=== PATIENT | female | born 1945 | race Caucasian/White ===

== ENCOUNTER 2017-08-11 15:13 | Emergency (ER) | payer MEDICARE ==
[2017-08-11 15:19] VITALS: BP 104/82
[2017-08-11 15:58] LABS: BASOPHIL % 0.6 % (0.0-0.4); Basophil (Absolute #) 0.02 (0-0.4); Eosinophil % 0.9 % (0.00-5.0); Eosinophil (Absolute #) 0.03 (0-0.5); Granulocyte Absolute (ANC) 2.18 (1.4-6.9); Granulocytes % 64.9 % (36.0-66.0); Hematocrit 36.6 % (35-47); Hemoglobin 12.2 gm/dl (12.0-16.0); Lymphocyte (Absolute #) 0.78 (1.0-4.6); Lymphocytes % 23.2 % (24.0-44.0); Mean Cell Volume 96.6 fl (78-100); Mean Corpuscular Hemoglobin 32.1 pg (26-32); Mean Corpuscular Hgb Concent. 33.3 g/dl (32-36); Mean Platelet Volume 9.2 fl (6-9.5); Monocyte (Absolute #) 0.35 (0.0-1.3); Monocytes % 10.4 % (0.0-12.0); Platelet Count 217 K/mm3 (150-450); Red Blood Count 3.79 M/mm3 (4.1-5.4); Red Cell Distribution Width 13.1 % (11.5-14.0); White Blood Count 3.4 K/mm3 (4.0-10.5)
[2017-08-11 16:21] LABS: BLOOD UREA NITROGEN 13 mg/dL (7-17); CHLORIDE 99 mmol/L (98-107); Calcium 8.9 mg/dL (8.4-10.2); Carbon Dioxide 25 mmol/L (22-30); Creatinine 1 0.46 mg/dL (0.52-1.04); Glucose 107 mg/dL (74-106); Potassium 4.2 mmol/L (3.5-5.1); SODIUM 133 mmol/L (137-145)
[2017-08-11 18:04] VITALS: PULSE 70
[2017-08-11 18:09] VITALS: O2SAT 99
--- NOTE | 2017-08-11 18:09 | ERPHSYRPT ---
- History of Present Illness Time Seen by Provider: 08/11/17 15:34 Source: patient, family () Patient Subjective Stated Complaint: pt states she has fish bone stuck in throat , Triage Nursing Assessment: pt waked in, resp easy, skin w/d/p, pt keeps clearing throat, and spitting Physician History: CC: choked on fishbone HX: 72 y/o eating frozen klein fish and felt fishbones in her throat. She spit some out. Thinks she swallowed some bone and felt lke it was stuck in her upper throat. No diff breathing. No vomiting. No abd pain. No wheezing. No vomiting. She was scared she would choke so came to ER. Severity: moderate Allergies/Adverse Reactions: morphine Allergy (Mild, Verified 08/11/17 15:20) Home Medications: Dicyclomine HCl [Bentyl] 10 mg PO ACHS 08/22/14 [History] Esomeprazole Magnesium [Nexium] 40 mg PO DAILY 08/22/14 [History] Sertraline HCl 100 mg [Zoloft 100 MG] 100 mg PO DAILY 08/22/14 [History] Sumatriptan Succinate [Imitrex] 100 mg PO .PRN 08/22/14 [History] Temazepam 30 mg PO HS PRN PRN 08/22/14 [History] Hydrocodone Bit/Acetaminophen [Ballinger 5-325 Tablet] 1 each PO PRN 11/23/14 [ History] Hx Tetanus, Diphtheria Vaccination/Date Given: Yes (2011) Hx Influenza Vaccination/Date Given: Yes Hx Pneumococcal Vaccination/Date Given: Yes Immunizations Up to Date: Yes - Review of Systems Constitutional: No Symptoms Ears, Nose, & Throat: Throat Pain (FB sensation) Respiratory: No Dyspnea Abdominal/Gastrointestinal: No Abdominal Pain, No Nausea, No Vomiting Skin: No Rash Neurological: No Headache All Other Systems: Reviewed and Negative - Past Medical History Pertinent Past Medical History: Yes Neurological History: No Pertinent History ENT History: No Pertinent History Cardiac History: No Pertinent History Respiratory History: Bronchitis Endocrine Medical History: No Pertinent History Musculoskeletal History: Osteoarthritis GI Medical History: Diverticulitis, Ulcer, Irritable Bowel, GERD History: No Pertinent History Psycho-Social History: Depression, Anxiety Female Reproductive Disorders: No Pertinent History Other Medical History: IRRITABLE BOWEL SYNDROME, GERD, TRIGGER FINGER RELEASE R HAND - Past Surgical History Past Surgical History: Yes Musculoskeletal: Orthopedic Surgery Female Surgical History: Hysterectomy Other Surgical History: SHOULDER SURGERY, BACK SURGERY, left knee - Social History Smoking Status: Former smoker Exposure to second hand smoke: No Drug Use: none Patient Lives Alone: No - Female History Hx Last Menstrual Period: post Hx Now: No - Nursing Vital Signs Nursing Vital Signs: Initial Vital Signs Temperature 97.6 F 08/11/17 15:14 Pulse Rate 75 08/11/17 15:14 Respiratory Rate 20 08/11/17 15:14 Blood Pressure 104/82 08/11/17 15:14 O2 Sat by Pulse Oximetry 99 08/11/17 15:14 Pain Scale Pain Intensity 4 - Physical Exam General Appearance: alert, other (pleasant lady) Eye Exam: PERRL/EOMI Ears, Nose, Throat Exam: moist mucous membranes Neck Exam: normal inspection, non-tender, supple Respiratory Exam: normal breath sounds, lungs clear, No wheezing Cardiovascular Exam: regular rate/rhythm Gastrointestinal/Abdomen Exam: soft, No tenderness, No distention Extremity Exam: normal inspection, normal range of motion Neurologic Exam: alert, oriented x 3, cooperative, flight steward II-XII nml as tested, sensation nml, No motor deficits Skin Exam: warm, dry, No rash SpO2 Interpretation: normal SpO2: 99 Oxygen Delivery: Room Air - Course Nursing assessment & vital signs reviewed: Yes - CT Exams soft tissue neck CT Interpretation: Tele-radiologist Report (no FB) Ordered Tests: Active Orders 24 hr Category Date Time Status IV Insertion STAT Care 08/11/17 15:41 Active NPO (ED) STAT Care 08/11/17 15:41 Active NECK WO CONTRAST [CT] Stat Exams 08/11/17 15:41 Taken BMP Stat Lab 08/11/17 15:50 Completed CBC W DIFF Stat Lab 08/11/17 15:50 Completed Lab/Rad Data: Laboratory Result Diagrams 08/11/17 15:50 08/11/17 15:50 Laboratory Results 08/11/17 08/11/17 Range/Units 15:50 15:50 WBC 3.4 L (4.0-10.5) K/mm3 RBC 3.79 L (4.1-5.4) M/mm3 Hgb 12.2 (12.0-16.0) gm/dl Hct 36.6 (35-47) % MCV 96.6 (78-100) fl MCH 32.1 H (26-32) pg MCHC 33.3 (32-36) g/dl RDW 13.1 (11.5-14.0) % Plt Count 217 (150-450) K/mm3 MPV 9.2 (6-9.5) fl Gran % 64.9 (36.0-66.0) % Lymphocytes % 23.2 L (24.0-44.0) % Monocytes % 10.4 (0.0-12.0) % Eosinophils % 0.9 (0.00-5.0) % Basophils % 0.6 (0.0-0.4) % Basophils # 0.02 (0-0.4) Sodium 133 L (137-145) mmol/L Potassium 4.2 (3.5-5.1) mmol/L Chloride 99 (98-107) mmol/L Carbon Dioxide 25 (22-30) mmol/L Anion Gap 13.0 (5-15) MEQ/L BUN 13 (7-17) mg/dL Creatinine 0.46 L (0.52-1.04) mg/dL Estimated GFR > 60 ML/MIN Glucose 107 H (74-106) mg/dL Calcium 8.9 (8.4-10.2) mg/dL - Progress Progress Note: 08/11/17 18:09 She has no respiratory symptoms. She swallowed water. Discussed local and direct visualization. She decided it feels scratched now and she is ready to go home. Will release with instr. Counseled pt/family regarding: lab results, diagnosis, need for follow-up, rad results - Departure Time of Disposition: 18:09 Departure Disposition: Home Clinical Impression: Foreign body sensation in throat Condition: Stable Critical Care Time: No Referrals: FREDDIE GABRIEL [Primary Care Provider] - Instructions: Choking Additional Instructions: Liquid diet tonite. Cool liquids. Return for pain, trouble breathing or swallowing or concerns. Follow up with LOU Gabriel.
--- NOTE | 2017-08-11 21:10 | XRAY ---
Indication: Patient states swallowed a fishbone and now stuck. Multiple contiguous axial images obtained through the neck without contrast as ordered. Comparison: None Supra-and infraglottic airway are widely patent without radiopaque foreign body. Normal epiglottis. No pneumomediastinum. Mild scattered carotid calcifications bilaterally. Thyroid gland unremarkable. Underlying cervical spine intact with minimal C4-C6 degenerative disc disease. Images through the base of the brain and lung apices unremarkable. Impression: 1. Negative radiopaque foreign body. 2. Minimal C4-C6 degenerative disc disease and mild bilateral carotid calcifications.. Comment: Preliminary interpretation was made by [facility]. No discrepancy. CTDI 15.68
== END 2017-08-11 18:19 | disposition home or self-care (01) ==
LOC: ED 15:13
DX: R09.89 Other specified symptoms and signs involving the circulatory and respiratory systems (principal)
CPT/HCPCS: 36000; 36415; 70490; 80048; 85025; 99284

== ENCOUNTER 2018-10-07 08:22 | Day surgery (SDC) | payer MEDICARE ==
[~2018-10-07 08:22] MED LIST: Lactated Ringers 1,000 ML IV ONE; Lactated Ringers 1,000 ML IV SCH
[2018-10-07] MEDS ORDERED: DIPRIVAN 200 MG/20 ML IV ONE (08:23)
[2018-10-07] MEDS ORDERED: Lactated Ringers 1,000 ML IV ONE (12:25)
[2018-10-07 14:49] VITALS: BP 138/52; PULSE 54; O2SAT 95
--- NOTE | 2018-10-08 12:04 | OP ---
PROCEDURE DATE/TIME: 10/07/2018 1211 PREOPERATIVE DIAGNOSES: 1) Gastroesophageal reflux disease. 2) Left upper quadrant abdominal pain, mid abdominal pain. 3) High-risk colon polyp. POSTOPERATIVE DIAGNOSES: 1) Gastroesophageal reflux disease. 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 3) Hiatal hernia. 4) Peptic ulcer disease. 5) Gastritis. 6) Duodenal diverticulum. 7) Cecal polyp. 8) Pancolonic diverticulosis. 9) Minimal hemorrhoidal disease. PROCEDURES: 1) EGD with biopsy. 2) Colonoscopy with hot forceps polypectomy. PROCEDURE PERFORMED BY: Amanda Bañuelos M.D. ANESTHESIA: MAC. ESTIMATED BLOOD LOSS: Minimal. COMPLICATIONS: None. SPECIMENS: 1) Antral ulcer 2) Distal esophagus ulcer, 3) Cecal polyp. HISTORY: This is a patient who presents for close follow up due to a recent high-risk polyp removal as well as mid abdominal pain and left upper quadrant abdominal pain. Risks, benefits, alternatives to EGD and colonoscopy were discussed with the patient preoperatively. She understands, agrees and wants to proceed. Her H&P and consent were reviewed with her and confirmed. DESCRIPTION OF PROCEDURE: She was then placed in the left lateral decubitus position. A complete time out performed. The scope gently introduced into the mouth, oropharynx down to the esophagus, stomach and duodenum. Duodenal diverticulum noted otherwise the duodenum was normal. In the stomach there were multiple ulcers. There was one old ulcer that appeared to be healing and scarring down. There were also two active antral ulcers. There were also multiple specks of small amount of clotted old blood in her stomach. I did not see a visible vessel at any of the ulcer bases and none of the ulcers had clot on them and none of the ulcers were actively bleeding at this time. The small amount of blood was old. She also had gastritis throughout her stomach but most of the inflammation was situated in the region of the antrum. On retroflex view, we visualized a hiatal hernia. The scope was then unretroflexed. We took antral biopsies and sent these off for Helicobacter pylori testing. These sites were hemostatic. The scope was carefully withdrawn to the distal esophagus. Gastroesophageal junction was off by 3 cm. She did have a 3 cm sliding hiatal hernia and she also had possible Moore-like changes with two sites anteriorly and posteriorly of approximately 1 cm of Moore-like changes at both sites. We took biopsies of these and sent these to pathology. All the sites were hemostatic. The scope was then completely removed. The remainder of the esophagus mucosa looked normal. The patient was then repositioned for colonoscopy. On rectal exam she had a very minimal amount of hemorrhoid disease. The scope was then inserted and gently advanced to the level of the cecum. The colon is quite tortuous. We are able to gently navigate the scope to the cecum with gentle abdominal pressure. Ileocecal valve and appendiceal were confirmed and these were normal. There was a small benign appearing cecal polyp taken with hot forceps in its entirety and sent to pathology this site looked hemostatic. The scope was then further withdrawn. The patient had pancolonic diverticulosis. Her prior tattoo site looked okay. There were no signs of any regrowth anywhere near the tattoo site and then the scope was able to be completely withdrawn. The patient tolerated the procedure very well. There were no immediate complications. Plan will be for proton pump inhibitor and Carafate therapy due to the peptic ulcer disease, gastritis, hiatal hernia and esophagitis as well as EGD in three months. We will also do a colonoscopy in approximately three years.
== END 2018-10-07 14:20 | disposition home or self-care (01) ==
LOC: SDC 08:22
PROVIDERS: ATTEND Surgery
DX: K21.9 Gastro-esophageal reflux disease without esophagitis (principal); D12.0 Benign neoplasm of cecum; K44.9 Diaphragmatic hernia without obstruction or gangrene; K29.70 Gastritis, unspecified, without bleeding; K57.10 Diverticulosis of small intestine without perforation or abscess without bleeding; K57.30 Diverticulosis of large intestine without perforation or abscess without bleeding; K25.9 Gastric ulcer, unspecified as acute or chronic, without hemorrhage or perforation; K22.10 Ulcer of esophagus without bleeding; K64.9 Unspecified hemorrhoids
CPT/HCPCS: 88305; 99100; J2704

== ENCOUNTER 2019-01-06 07:42 | Day surgery (SDC) | payer MEDICARE ==
[2019-01-06] MEDS ORDERED: Lactated Ringers 1,000 ML IV ONE (08:26)
[2019-01-06] MEDS ORDERED: Lactated Ringers 1,000 ML IV SCH (08:30)
[2019-01-06] MEDS ORDERED: Sodium Chloride 0.9% 1000 ML 1,000 ML ONE (10:12)
[2019-01-06] MEDS ORDERED: DIPRIVAN 200 MG/20 ML IV ONE (10:12)
[2019-01-06] MEDS ORDERED: Ketamine HCl 50 MG/ML ONE (10:12)
[2019-01-06 11:21] VITALS: O2SAT 98
[2019-01-06 11:31] VITALS: BP 152/64; PULSE 58
--- NOTE | 2019-01-07 09:06 | OP ---
PROCEDURE DATE/TIME: 01/06/2019 1008 PREOPERATIVE DIAGNOSIS: Peptic ulcer disease. POSTOPERATIVE DIAGNOSES: 1) Resolved peptic ulcer disease. 2) Residual gastritis. 3) Small hiatal hernia. 4) Reflux disease. PROCEDURE: EGD with biopsies. PROCEDURE PERFORMED BY: Amanda Bañuelos M.D. ESTIMATED BLOOD LOSS: Minimal. ANESTHESIA: MAC. COMPLICATIONS: None. SPECIMEN: Antral biopsy to rule out Helicobacter pylori disease. HISTORY: This is a 73 year-old female who presents due to reflux disease as well as peptic ulcer disease for follow up EGD. Risks, benefits, alternatives had been discussed with her preoperatively. Her H&P and consent reviewed with her and confirmed. DESCRIPTION OF PROCEDURE: She was brought back to the endoscopy suite, laid in the left lateral decubitus position. A complete time out was performed. The scope gently introduced into the mouth, oropharynx into the esophagus, stomach, duodenum. In the duodenum she has an unchanged large duodenal diverticulum in approximately the second portion of her duodenum. The scope was then carefully withdrawn. The remainder of the duodenum looked okay. In her stomach she had some mild residual gastritis. The ulcers have healed. On retroflex view she does have a small hiatal hernia. No other findings. The scope was then completely removed into the esophagus. She does have some early reflux changes here. Overall her stomach and esophagus have significantly improved. We were able to completely remove the scope. The patient tolerated the procedure very well. I did take an antral biopsy to insure no Helicobacter pylori disease and she does have some residual gastritis. This result we will discuss at her next appointment. Otherwise she will need a PRN EGD. I am going to have her decrease her Carafate and then ultimately eliminate this after approximately a month. I have discussed all the results with her family in the postoperative area.
== END 2019-01-06 11:40 | disposition home or self-care (01) ==
LOC: SDC 07:42
PROVIDERS: ATTEND Surgery
DX: K29.70 Gastritis, unspecified, without bleeding (principal); K44.9 Diaphragmatic hernia without obstruction or gangrene; K21.9 Gastro-esophageal reflux disease without esophagitis
CPT/HCPCS: 99100; J2704

== ENCOUNTER 2020-08-02 11:21 | Day surgery (SDC) | payer MEDICARE ==
[~2020-08-02 11:21] MED LIST changes: +CEFAZOLIN 2 GM-D5W BAG** 2 GM/50 ML ML IV ONE; +CEFAZOLIN 2 GM-D5W BAG** 2 GM/50 ML ML IV SCH; +KEFZOL 1 GM ONE; +Sensorcaine 0.25% 10 ML ONE
[2020-08-02] MEDS ORDERED: Decadron 4 MG INJ ONE (13:13)
[2020-08-02] MEDS ORDERED: Zofran 4 MG/2 ML VIAL ONE (13:13)
[2020-08-02] MEDS ORDERED: BRIDION 200MG/2ML IV ONE (13:13)
[2020-08-02] MEDS ORDERED: DIPRIVAN 200 MG/20 ML IV ONE (13:13)
[2020-08-02] MEDS ORDERED: Xylocaine-Mpf 2% 5 Ml Vial ONE (13:13)
[2020-08-02] MEDS ORDERED: Zemuron 100 MG/10 ML ONE (13:13)
[2020-08-02] MEDS ORDERED: TORAdol 30 mg Injection ONE (13:13)
[2020-08-02] MEDS ORDERED: SUBLIMAZE 100 MCG/2 ML ONE (13:14)
[2020-08-02] MEDS ORDERED: Marcaine 0.5%/Epinephrine 10 ML ONE (15:27)
[2020-08-02] MEDS ORDERED: Hydromorphone 1 mg/ml Injection ONE (16:09)
[2020-08-02] MEDS ORDERED: Lactated Ringers 1,000 ML IV ONE (16:34)
[2020-08-02 17:37] VITALS: O2SAT 100
[2020-08-02 17:40] VITALS: BP 138/79; PULSE 75
--- NOTE | 2020-08-09 12:02 | OP ---
PROCEDURE DATE/TIME: 08/02/2020 9954 PREOPERATIVE DIAGNOSIS: Right inguinal hernia. POSTOPERATIVE DIAGNOSES: 1) Right inguinal indirect and direct defect. 2) Mildly enlarged right inguinal lymph node. PROCEDURES: 1) Right inguinal hernia repair with mesh. 2) Excisional biopsy deep right inguinal lymph node. PROCEDURE PERFORMED BY: Amanda Bañuelos M.D. COMPLICATIONS: None. ESTIMATED BLOOD LOSS: Less than 10 cc. ANESTHESIA: General. SPECIMEN: Right inguinal lymph node and hernia sac. PROCEDURE DETAILS: This is a 75 year-old patient who presents with symptomatic right inguinal hernia and also verified on imaging as well as on exam. Risks, benefits, alternatives regarding repair have been discussed with her in detail preoperatively. She understands and agrees and wants to proceed. She was seen in the preoperative area. Her H&P and consent reviewed with her and confirmed. She was also marked personally by myself. The correct side which is the right side with her awake, alert and hernia verified. DESCRIPTION OF PROCEDURE: She was then brought back to the operative suite. Anesthesia induced. Prepped and draped in the usual sterile fashion. Complete time out performed. A curvilinear incision following skin line was made approximately two finger breadths above the pubic tubercle carrying this incision laterally through skin, subcutaneous tissue through Oskar and then we clearly identified the external oblique. The inguinal ring was identified. She has an obvious hernia. The external oblique opened along its fibers down to the external ring. The hernia was clearly identified. We elevated the external oblique carefully and then we were able to identify the round ligament and ligate this. She had an indirect as well as a direct defect. The floor was very weak. We continued our dissection and she had a moderate sized hernia sac. She also had a weak floor in the region of the femoral area but no specific femoral hernia. There was a very tiny ilioinguinal nerve that was quite adherent here to the chronic hernia and I did take pictures and excise this carefully because we will need to place mesh here and then at this point we then carefully dissected free the hernia sac. The hernia sac was opened. The omental contents were carefully replaced back into the abdomen. I excised the excess part of the sac and then sutured this closed. We then further replaced the contents into the abdomen. I selected a piece of mesh. I selected a 2 x 4 cm Bard mesh. I cut this to fit the patient's anatomy in an oval fashion. I then sutured this down to the pubic tubercle continuing this along Jony's to transitioning this up to the shelving edge of the inguinal ligament and continued laterally. I then carried a new suture medially down to the pubic tubercle and then up and around onto the conjoin tendon securing the patient's inguinal region and covering both the inguinal indirect and direct defects. Once this was done we insured hemostasis. We irrigated. We then closed the external oblique to re-approximate it with 2-0 Vicryl. Oskar with 3-0 Vicryl and then running 4-0 subcuticular Monocryl stitch. The patient tolerated the procedure very well. There were no immediate complications. She is going to be following up with me as an outpatient. Of note, there was a slightly enlarged obvious lymph node in the deep right inguinal region. Due to this I did completely excise the node and sent this to pathology. I did not take any extra tissue just the node.
== END 2020-08-02 17:43 | disposition home or self-care (01) ==
LOC: SDC 11:21
PROVIDERS: ATTEND Surgery
DX: K40.90 Unilateral inguinal hernia, without obstruction or gangrene, not specified as recurrent (principal); R59.0 Localized enlarged lymph nodes
CPT/HCPCS: 36415; 38500; 49505; C1781; 88302; 88305; 99100; J0690; J1100; J1170; J1885; J2405; J2704; J3010

== ENCOUNTER 2021-04-09 19:28 | Emergency (ER) | payer MEDICARE ==
--- NOTE | 2021-04-09 19:58 | ERPHSYRPT ---
- History of Present Illness Time Seen by Provider: 04/09/21 19:52 Source: patient Exam Limitations: no limitations Patient Subjective Stated Complaint: "I fell in my kitchen and hit my chin." Triage Nursing Assessment: The patient reported a mechanical fall in her kitchen. She reported striking her left knee and chin. She is not anticoagulated and denied any loss of consciousness. She was able to recall the events in full. The patient has a 2cm laceration to the underside of the chin. No active bleeding at this time. Left knee with contusion. Full ROM and equal strength. Physician History: "I fell in my kitchen and hit my chin." just prior to arrival to ER. The patient reported a mechanical fall in her kitchen. She reported striking her left knee and chin. She is not anticoagulated and denied any loss of con sciousness. She was able to recall the events in full. The patient has a 2cm laceration to the underside of the chin. No active bleeding at this time. Left knee with contusion. Full ROM and equal strength. Timing/Duration: today Severity: mild Associated Symptoms: denies symptoms Allergies/Adverse Reactions: pollen extracts Allergy (Intermediate, Verified 04/09/21 19:34) Shortness of Breath butorphanol [From Stadol] Adverse Reaction (Severe, Verified 04/09/21 19:34) hallucinations ibuprofen Adverse Reaction (Intermediate, Verified 04/09/21 19:34) Stomach Pain morphine Adverse Reaction (Mild, Verified 04/09/21 19:34) hallucinate Opioids - Morphine Analogues Adverse Reaction (Mild, Verified 04/09/21 19:34) constipation and nausea and vomiting Home Medications: Sertraline HCl 100 mg [Zoloft 100 MG] 100 mg PO DAILY 08/22/14 [History] Cyclobenzaprine HCl [Flexeril] 10 mg PO Q6HPRN PRN 09/26/18 [History] Loratadine [Claritin] 10 mg PO DAILY PRN PRN 09/26/18 [History] Multivit-Min/FA/Lycopen/Lutein [Centrum Silver Tablet] 1 each PO DAILY 09/26/18 [History] Temazepam [Restoril] 30 mg PO HS 09/26/18 [History] Torsemide 20 mg [Demadex 20 mg] 10 mg PO DAILY PRN PRN 09/26/18 [History] Magnesium Hydroxide 30 ml [Milk of Magnesia 30 ml] 1 capful PO DAILY PRN 10/07/18 [History] Psyllium Husk [Metamucil] 660 gm PO BID 10/07/18 [History] Calcium Carb/Vitamin D 500 mg* [Calcium 500MG W/Vit D Tablet] 1 tab PO DAILY 07/26/20 [History] PANTOPRAZOLE 40 mg Tablet [Protonix 40MG Tablet] 10 mg PO QAM 07/26/20 [History] Vitamin E 100 units PO DAILY 07/26/20 [History] Bisacodyl 5 mg [Dulcolax 5 mg] 5 mg PO DAILY PRN PRN 08/02/20 [History] Calcium Carbonate/Vitamin D3 [Calcium 600 + Vit D Tablet] 1 each PO DAILY 08/02/20 [History] Cholecalciferol (Vitamin D3) [Vitamin D] 5,000 unit PO DAILY 08/02/20 [History] Cyclobenzaprine HCl [Flexeril] 10 mg PO HS PRN 08/02/20 [History] Hx Tetanus, Diphtheria Vaccination/Date Given: Yes (2011) Hx Influenza Vaccination/Date Given: Yes Hx Pneumococcal Vaccination/Date Given: Yes Travel Risk - International Travel Have you traveled outside of the country in past 3 weeks: No - Coronavirus Screening Are you exhibiting any of the following symptoms?: No Close contact with a COVID-19 positive Pt in past 14-21 Days: No - Vaccine Status Have you recieved a Covid-19 vaccination: Yes Documentation Liaison: [employer] - Vaccination Dates Date of 2cond Vaccination (if applicable): unknown - Review of Systems Constitutional: No Symptoms Eyes: No Symptoms Ears, Nose, & Throat: No Symptoms Respiratory: No Symptoms Cardiac: No Symptoms Abdominal/Gastrointestinal: No Symptoms Genitourinary Symptoms: No Symptoms Musculoskeletal: No Symptoms Skin: Other (laceration 4 cms under chin) Neurological: No Symptoms - Past Medical History Pertinent Past Medical History: Yes Neurological History: No Pertinent History ENT History: No Pertinent History Cardiac History: No Pertinent History Respiratory History: No Pertinent History Endocrine Medical History: No Pertinent History Musculoskeletal History: Arthritis GI Medical History: Diverticulitis, Ulcer, Irritable Bowel, GERD History: No Pertinent History Psycho-Social History: Depression, Anxiety Female Reproductive Disorders: No Pertinent History Other Medical History: SOB due to dust. 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 cuff shredded ,repaired) BACK SURGERY (L3,L4 and buldging repair) left knee (replaced) oral surgery post for dentures, jasson cataract removed and lens placed - Social History Smoking Status: Former smoker Exposure to second hand smoke: No Drug Use: none Patient Lives Alone: No - Female History Hx Now: No - Nursing Vital Signs Nursing Vital Signs: Initial Vital Signs Temperature 98.2 F 04/09/21 19:28 Pulse Rate 72 04/09/21 19:28 Respiratory Rate 16 04/09/21 19:28 Blood Pressure 149/66 04/09/21 19:28 O2 Sat by Pulse Oximetry 99 04/09/21 19:28 Pain Scale Pain Intensity 4 - Physical Exam General Appearance: no apparent distress Eye Exam: PERRL/EOMI Ears, Nose, Throat Exam: normal ENT inspection Neck Exam: normal inspection Respiratory Exam: normal breath sounds Cardiovascular Exam: regular rate/rhythm Gastrointestinal/Abdomen Exam: soft Pelvic Exam: not done Rectal Exam: deferred Back Exam: normal inspection Extremity Exam: normal inspection Neurologic Exam: alert, oriented x 3, cooperative Skin Exam: laceration (4 cms, superficial under chin) SpO2: 99 Procedures - Laceration/Wound Repair Other Time of Procedure: 19:40 Wound Location: face (under chin) Wound Length (cm): 4 Wound's Depth, Shape: superficial Wound Explored: clean Irrigated: Yes Hibiclens Prep: Yes Anesthesia: local, 1% Lidocaine Volume Anesthetic (ccs): 5 Wound Debrided: minimal Wound Repaired With: sutures Suture Size/Type: 3-0, ethilon Number of Sutures: 5 Layer Closure?: No Sterile Dressing Applied?: Yes - Course Nursing assessment & vital signs reviewed: Yes - Progress Progress: improved Counseled pt/family regarding: diagnosis, need for follow-up (sutures removal in 10 days) - Departure Departure Disposition: Home Clinical Impression: Laceration of chin without complication Qualifiers: Encounter type: initial encounter Qualified Code(s): S01.81XA - Laceration without foreign body of other part of head, initial encounter Condition: Stable Critical Care Time: No Referrals: FREDDIE BAUMANN GENERATOR WORKER [Primary Care Provider] - Follow up/PCP as directed (sutures removal in 10 days) Instructions: Laceration Repair With Stitches (DC) Additional Instructions: LACERATION CARE 1. Do not use peroxide, merthiolate, alcohol, or betadine. 2. Keep wound clean and dry. 3. Change dressing if it becomes wet or soiled. 4. If you must work, wear protective covering. 5. You may return to the emergency department or see your family physician for suture removal. 6. See your family physician or return to the emergency department for any of the following signs or symptoms: A. Redness B. Swelling C. Discolored drainage D. Red streaks E. Elevated temperature F. Other signs of infection KATIUSKA STROUD was seen on 04/09/21 n the Emergency Room. At that time you were treated for an emergent condition, during your visit Laboratory, Radiology and/or other procedures may have been ordered. It is very important that you follow-up with your Primary Care Physician FREDDIE BAUMANN within the next 24-48 hours to review your Emergency Room visit and the final results of testing that was ordered. Some test results such as Urine Cultures, Blood Cultures, and other cultures if ordered will not be finalized for 24-48 hours. If you do not have a Primary Care Provider please call the medical records department at [phone] to obtain a copy of your results or you may sign into our patient portal to obtain these results by visiting us @ [email or web address] and completing the following steps: 1. Click on the Patient Portal link 2. Click the Patient Self Enrollment Link to complete the enrollment form and entering your 3. Once the enrollment form is completed you will receive an email with a temporary ID and password at the email address you provided. 4. Next choose a user name and password. Your user name must be at least 4 characters long and your password must be at least 4 characters long. 5. Choose a security question from the list and provide your answer to the question. If you already have signed into the Health Portal you may access your Health Care Information 18/12 by the following steps: 1. Login to our website @ [email or web address] 2. Enter your original user name and password. FAQS The [facility] Health Portal is an online tool that contains your Lab Results, Radiology Reports, Visit History, Discharge Instructions and Health Summary Lab and Radiology Results will not be available for 72 hours on the portal. The Portal is a secure site, passwords are encryted and URLs are re-written so they cannot be copied and pasted. You and authorized family members are the only ones who can access your Portal. Also there is a timeout feature that protects your information if you leave the Portal page open. If you have technical difficulty please use the Contact Us link on the page this will allow you to submit any questions you have regarding the Portal or you may contact the Medical Record Department at [phone]. Discharge/Care Plan KATIUSKA STROUD was seen on 04/09/21 in the Emergency Room. The patient was counseled regarding Diagnosis,Lab results, Imaging studies, need for follow up and when to return to the Emergency Room. Prescriptions given: Discharge Note I have spoken with the patient and/or caregivers. I have explained the patient's condition, diagnosis and treatment plan based on the information available to me at this time. I have answered the patient's and/or caregiver's questions and addressed any concerns. The patient and/or caregivers have as good understanding of the patient's diagnosis, condition and treatment plan as can be expected at this point. The vital signs have been stable. The patient's condition is stable and appropriate for discharge from the emergency department. The patient will pursue further outpatient evaluation with the primary care physician or other designated or consulting physician as outlined in the discharge instructions. The patient and/or caregivers are agreeable to this plan of care and follow-up instructions have been explained in detail. The patient and/or caregivers have received these instruction. The patient/and or caregivers are aware that any significant change in condition or worsening of symptoms should prompt an immediate return to this or the closest emergency department or call 911.
== END 2021-04-09 20:10 | disposition home or self-care (01) ==
LOC: ED 19:28
DX: S01.81XA Laceration without foreign body of other part of head, initial encounter (principal); W18.30XA Fall on same level, unspecified, initial encounter; Y92.000 Kitchen of unspecified non-institutional (private) residence as the place of occurrence of the external cause; M25.562 Pain in left knee; Z79.899 Other long term (current) drug therapy
CPT/HCPCS: 12013; 99283

== ENCOUNTER 2021-04-28 07:40 | Inpatient (IN) | payer MEDICARE ==
[2021-04-28] MEDS ORDERED: Lactated Ringers 1,000 ML IV SCH (08:30)
[2021-04-28] MEDS ORDERED: ENTEREG 12 MG PO SCH (08:30)
[2021-04-28] MEDS ORDERED: MEFOXIN 2 GM PREMIX** 2 GM/50 ML ML IV SCH (09:00)
[2021-04-28 09:57] LABS: ABO TYPING O; Antibody Screen NEGATIVE (NEGATIVE); RH TYPING POSITIVE
[2021-04-28] MEDS ORDERED: Versed 2 MG/2 ML Injection IV ONE (11:10)
[2021-04-28] MEDS ORDERED: Zofran 4 MG/2 ML VIAL ONE ×2 (11:46→17:15)
[2021-04-28] MEDS ORDERED: BRIDION 200MG/2ML IV ONE (11:46)
[2021-04-28] MEDS ORDERED: DIPRIVAN 200 MG/20 ML IV ONE (11:46)
[2021-04-28] MEDS ORDERED: Decadron 4 MG INJ ONE (11:46)
[2021-04-28] MEDS ORDERED: Zemuron 100 MG/10 ML ONE ×3 (11:46→12:14)
[2021-04-28] MEDS ORDERED: EPIDURAL - ROPIVICAINE0.5%/SUFENTA 250 MCG/NS EPIDURAL PRN (13:00)
[2021-04-28] MEDS ORDERED: Versed 2 MG/2 ML Injection ONE (13:18)
[2021-04-28] MEDS ORDERED: SUBLIMAZE 100 MCG/2 ML ONE (13:33)
[2021-04-28] MEDS ORDERED: Lactated Ringers 2,000 ML IV ONE (14:29)
[2021-04-28] MEDS ORDERED: Marcaine 0.5%/Epinephrine 10 ML ONE (14:46)
[2021-04-28] MEDS ORDERED: Naropin 0.5% 30 ML VIAL ONE (15:35)
[2021-04-28] MEDS ORDERED: EPINEPHRINE 1MG/ML AMP ONE (15:35)
[2021-04-28] MEDS ORDERED: GlucaGen 1 MG ONE (15:37)
[2021-04-28] MEDS ORDERED: Lactated Ringers 1,000 ML IV ONE (16:40)
[2021-04-28] MEDS ORDERED: CHLORASEPTIC SPRAY 180 ML ONE (17:11)
[2021-04-28] MEDS ORDERED: DEMEROL 50 MG ONE (17:19)
[2021-04-28 19:27] LABS: Appearance CLEAR (CLEAR); Bilirubin NEGATIVE (NEGATIVE); Blood SMALL Ery/ul (0-5); Glucose NEGATIVE (NEGATIVE); Ketones SMALL (NEGATIVE); Leukocyte Esterase NEGATIVE (NEGATIVE); Mucus SLIGHT /HPF (NEGATIVE); Nitrite NEGATIVE (NEGATIVE); Protein,Urine Dip NEGATIVE (Negative); Specific Gravity 1.011 (1.005-1.025); Urobilinogen NEGATIVE mg/dL (0-1)
[2021-04-28] MEDS ORDERED: Cyclobenzaprine 10 MG PO PRN (21:16)
[2021-04-28] MEDS ORDERED: TYLENOL 325 MG PO PRN (21:24)
[2021-04-28] MEDS ORDERED: FEVERALL 650 MG PR PRN (21:24)
[2021-04-28] MEDS ORDERED: Zofran 4 MG/2 ML VIAL IVIM PRN (21:25)
[2021-04-28] MEDS ORDERED: CHLORASEPTIC SPRAY 180 ML PO PRN (21:26)
[2021-04-28] MEDS ORDERED: Ativan 2 MG/1 ML VIAL IV PRN (21:28)
[2021-04-28] MEDS ORDERED: NARCAN 2 MG/2 ML IV PRN (21:30)
[2021-04-28] MEDS ORDERED: Nubain 10 MG/ML IV PRN (21:31)
[2021-04-28] MEDS: Restoril 15 MG PO SCH (21:51)
[2021-04-28] MEDS: PROTONIX 40 MG IV IV SCH (22:20)
[2021-04-29] MEDS: MEFOXIN 2 GM PREMIX** 2 GM/50 ML ML IV SCH ×4 (00:10→18:34)
[2021-04-29] MEDS: Lactated Ringers 1,000 ML IV SCH ×3 (00:13→17:01)
[2021-04-29 05:42] LABS: Hematocrit 33.7 % (35-47); Mean Cell Volume 99.1 fl (78-100); Mean Corpuscular Hemoglobin 32.4 pg (26-32); Mean Corpuscular Hgb Concent. 32.6 g/dl (32-36); Mean Platelet Volume 9.6 fl (7.5-11.0); Platelet Count 230 K/mm3 (150-450); Red Cell Distribution Width 13.9 % (11.5-14.0); White Blood Count 8.6 K/mm3 (4.0-10.5)
[2021-04-29 06:02] LABS: ANION GAP 14.1 MEQ/L (5-15); BLOOD UREA NITROGEN 9 mg/dL (7-17); CHLORIDE 103 mmol/L (98-107); Calcium 8.3 mg/dL (8.4-10.2); Carbon Dioxide 21 mmol/L (22-30); Creatinine 1 0.59 mg/dL (0.52-1.04); EST GLOMERULAR FILTRATION RATE > 60.0 ML/MIN; Glucose 74 mg/dL (74-106); Potassium 3.2 mmol/L (3.5-5.1); SODIUM 135 mmol/L (137-145)
[2021-04-29] MEDS ORDERED: NON-FORMULARY ITEM (Cetirizine Hcl [Zyrtec] 10 MG Tablet) PO PRN (07:21)
[2021-04-29] MEDS ORDERED: CLARITIN 10 MG PO PRN (07:25)
--- NOTE | 2021-04-29 08:31 | PCM.NOTE ---
Date and Time: 04/29/21 0827 Subjective Assessment: patient is post-op day 1 from ex lap with cholecystectomy and partial colectomy. her pain is well controllled with epidural, she only complains of sore throat. NG is in place, overall she is doing well Objective Exam General Appearance: no apparent distress Neurologic Exam: alert, oriented x 3 Wound Assessment: Skin/Wound Assessment Wound/Incision Assessment Start: 04/28/21 17:48 Text: Status: Active Freq: Q4H Protocol: Document 04/29/21 04:00 WI (Rec: 04/29/21 04:08 WI [id number]) Wound/Incision Assessment right Groin Wound Assessment Shift Assessment Wound Type Incision Wound Stage Non Pressure Wound Dressing Status Dry & Intact Drainage Amount None Drainage Odor None/Absent Primary Dressing boarder gauze dressing Comment NO DIFFICULTIES NOTED midline anterior ABD Wound Assessment Shift Assessment Wound Type Incision Wound Stage Non Pressure Wound Dressing Status Dry & Intact Drainage Amount None Drainage Odor None/Absent Primary Dressing boarder gauze dressing Comment no difficulties noted, ABD binder also in place Respiratory Exam: normal breath sounds, lungs clear, No respiratory distress Cardiovascular Exam: regular rate/rhythm, normal heart sounds Gastrointestinal/Abdomen Exam: soft, other (dressing clean, dry, intact), No normal bowel sounds, No distention Extremity Exam: normal inspection, normal range of motion OBJECTIVE DATA Vital Signs: Vital Signs - 24 hr Temp Pulse Resp BP Pulse Ox 04/29/21 03:56 98.9 F 77 20 100/49 98 04/29/21 00:00 99.8 F 79 18 116/55 97 04/28/21 20:15 99.3 F 73 18 124/56 97 04/28/21 19:15 97.3 F 70 19 120/59 97 04/28/21 18:45 98.6 F 73 18 109/54 96 04/28/21 18:42 96 04/28/21 18:20 97.1 F 70 19 107/53 96 04/28/21 18:15 96.9 F 71 20 107/54 96 04/28/21 18:00 97.1 F 70 19 107/53 96 04/28/21 09:21 98.4 F 63 16 131/74 98 04/28/21 08:52 98.4 F 63 16 131/74 98 Pain Assessment - Last Documented Pain Intensity 4 Intake and Output: Intake & Output 04/26/21 04/27/21 04/28/21 04/29/21 11:59 11:59 11:59 11:59 Intake Total 988 Output Total 900 Balance 88 Weight 65.317 kg 61.5 kg 69.7 kg Lab Results: Lab Results-Last 24 Hours 04/28/21 04/28/21 04/29/21 Range/Units 08:57 14:13 05:34 WBC 8.6 (4.0-10.5) K/mm3 RBC 3.40 L (4.1-5.4) M/mm3 Hgb 11.0 L (12.0-16.0) gm/dl Hct 33.7 L (35-47) % MCV 99.1 (78-100) fl MCH 32.4 H (26-32) pg MCHC 32.6 (32-36) g/dl RDW 13.9 (11.5-14.0) % Plt Count 230 (150-450) K/mm3 MPV 9.6 (7.5-11.0) fl Sodium (137-145) mmol/L Potassium (3.5-5.1) mmol/L Chloride (98-107) mmol/L Carbon Dioxide (22-30) mmol/L Anion Gap (5-15) MEQ/L BUN (7-17) mg/dL Creatinine (0.52-1.04) mg/dL Estimated GFR ML/MIN Glucose (74-106) mg/dL Calcium (8.4-10.2) mg/dL Urine Color YELLOW (YELLOW) Urine Appearance CLEAR (CLEAR) Urine pH 5.0 (5-6) Ur Specific [place] 1.011 (1.005-1.025) Urine Protein NEGATIVE (Negative) Urine Ketones SMALL (NEGATIVE) Urine Blood SMALL (0-5) [place]ron/ul Urine Nitrite NEGATIVE (NEGATIVE) Urine Bilirubin NEGATIVE (NEGATIVE) Urine Urobilinogen NEGATIVE (0-1) mg/dL Ur Leukocyte Esterase NEGATIVE (NEGATIVE) Urine WBC (Auto) 3-5 (0-5) /HPF Urine RBC (Auto) NONE (0-2) /HPF Urine Mucus (Auto) SLIGHT (NEGATIVE) /HPF Urine Glucose NEGATIVE (NEGATIVE) mg/dL ABO Group O Rh Factor POSITIVE Antibody Screen NEGATIVE (NEGATIVE) 04/29/21 Range/Units 05:34 WBC (4.0-10.5) K/mm3 RBC (4.1-5.4) M/mm3 Hgb (12.0-16.0) gm/dl Hct (35-47) % MCV (78-100) fl MCH (26-32) pg MCHC (32-36) g/dl RDW (11.5-14.0) % Plt Count (150-450) K/mm3 MPV (7.5-11.0) fl Sodium 135 L (137-145) mmol/L Potassium 3.2 L (3.5-5.1) mmol/L Chloride 103 (98-107) mmol/L Carbon Dioxide 21 L (22-30) mmol/L Anion Gap 14.1 (5-15) MEQ/L BUN 9 (7-17) mg/dL Creatinine 0.59 (0.52-1.04) mg/dL Estimated GFR > 60.0 ML/MIN Glucose 74 (74-106) mg/dL Calcium 8.3 L (8.4-10.2) mg/dL Urine Color (YELLOW) Urine Appearance (CLEAR) Urine pH (5-6) Ur Specific [place] (1.005-1.025) Urine Protein (Negative) Urine Ketones (NEGATIVE) Urine Blood (0-5) Bayron/ul Urine Nitrite (NEGATIVE) Urine Bilirubin (NEGATIVE) Urine Urobilinogen (0-1) mg/dL Ur Leukocyte Esterase (NEGATIVE) Urine WBC (Auto) (0-5) /HPF Urine RBC (Auto) (0-2) /HPF Urine Mucus (Auto) (NEGATIVE) /HPF Urine Glucose (NEGATIVE) mg/dL ABO Group Rh Factor Antibody Screen (NEGATIVE) Assessment/Plan (1) S/P partial colectomy Current Visit: Yes Status: Acute Assessment & Plan: vitals and labs are good, NG managed per surgery. patient has minimal medical history and h/h are good post-op. no changes Code(s): Z90.49 - ACQUIRED ABSENCE OF OTHER SPECIFIED PARTS OF DIGESTIVE TRACT (2) Status post cholecystectomy Current Visit: Yes Status: Acute Code(s): Z90.49 - ACQUIRED ABSENCE OF OTHER SPECIFIED PARTS OF DIGESTIVE TRACT
--- NOTE | 2021-04-29 09:32 | OP ---
PROCEDURE DATE/TIME: 04/28/2021 1337 PREOPERATIVE DIAGNOSES: 1) Chronic constipation with significantly redundant colon causing significant symptoms and change in bowel function. 2) Chronic cholecystitis with cholelithiasis. 3) Right groin hernia. POSTOPERATIVE DIAGNOSES: 1) Chronic constipation with significantly redundant colon causing significant symptoms and change in bowel function. 2) Chronic cholecystitis with cholelithiasis. 3) Right groin hernia had been identified as a right reducible femoral hernia. PROCEDURES: 1) Open partial sigmoid colectomy. 2) Open partial transverse colon colectomy. 3) Open cholecystectomy. 4) Open appendectomy. 5) Open right femoral hernia repair through a right groin incision. PROCEDURE PERFORMED BY: Amanda Bañuelos M.D. BU[employer]ING [employer]ER SURGEON: Urban Bañuelos M.D. COMPLICATIONS: None. ESTIMATED BLOOD LOSS: Less than 20 cc. ANESTHESIA: General and epidural. SPECIMEN: 1) Partial sigmoid. 2) Partial transverse colon. 3) Gallbladder. 4) Appendix. HISTORY: This is a 75-year-old female who is well known to me who has had multiple issues regarding her colon with extensive constipation. She has had a full work up including multiple scopes as well as an enema and she does have a significantly redundant colon in the transverse and sigmoid colon. Despite significant attempts to medically manage this with a bowel regimen, lifestyle changes, the patient continues to have abdominal pain, cramping, bloating and severe constipation to the point that she has some extreme inability to go to the restroom and this is causing significant issues for her and she would like for us to explore her and remove the colon that we deem necessary in order to attempt to improve her bowel habits based on her redundant anatomy. She also has chronic cholecystitis or cholelithiasis and she also has a right groin hernia and on palpation it feels like it is likely a femoral hernia although she could have a recurrent inguinal hernia and we will possibly repair this at the time of surgery based on what we find. The patient understands all the risks, benefits and alternatives regarding surgery. These have been discussed with her on multiple occasions and she would like to proceed. She was seen today in the preoperative area. Her H&P, consent reviewed with her and confirmed. All questions answered. A plan with anesthesia was made with the patient as well. She has chosen to also have an epidural which I think will help her postoperatively regarding pain control and we will proceed as planned. DESCRIPTION OF PROCEDURE: She was then brought back to the operative suite. Anesthesia induced. Prepped and draped in the usual sterile fashion. A complete time out performed. A midline laparotomy was made in the central and slightly superior abdomen through skin, subcutaneous tissue. The fascia was opened. The peritoneum was opened. We took great care to protect the bowel. I then started my exploration. The surface of her liver appeared grossly normal without any significant major defects from what we could visualize. The stomach anterior surface appeared normal, felt normal from what we could visualize the NG is in good position and it was secure. Her transverse colon is obviously extremely redundant. You can literally take this redundancy and pull it up out of her abdomen. It looks like it easily twists. It is extremely floppy and it looks like there is about 20 cm at least of redundancy here. The colon also does have some spasm here. The ascending colon did not appear obviously abnormal. We cannot see the entire surface due to the attachments. I do see a tattoo dye, nothing significant jumping out from our gross exam. Her appendix was slightly long. Her cecum is slightly sloppy. However, she does not have any known cecal bascules and this does not appear to be twisted here. With regards to her sigmoid colon, her sigmoid colon again is also extremely redundant like her transverse colon. I can just pull it up and straight out of her abdomen quite far but is extremely redundant and is extremely floppy. It looks like it would just twist around on itself and kink and this has at least 20 cm of redundancy as well. We then explored the remainder of her abdomen and did not find any significant concerning findings outside of a femoral hernia this appears to be inferior to her inguinal mesh and really not involving this. It appears to be a separate femoral defect. At this time we decided to repair the femoral hernia and take out the gallbladder prior to addressing the colon so we made a small separate incision at her upper right groin taking this through skin into the fatty tissue and then clearly identifying the femoral hernia defect from both sides. The femoral hernia sac itself was open. The ring was clearly defined. The fascia was then tacked down placing three Prolene sutures all in place. Once these were in place, we then tied each of these down. We avoided the femoral vein. The femoral artery is further lateral. Our repair looked excellent. We palpated from internally. The ring is completely closed. There are no issues here. We then closed with buried 3-0 Vicryl and then running 4-0 subcuticular Monocryl stitch and a sterile dressing. The gallbladder was removed also prior to the colectomy. The gallbladder was grasped, retracted. We carefully obtained a critical view this was done by taking down the subtle adhesions this did appear to have chronic cholecystitis on gross exam. The cystic duct and cystic artery were very clearly identified with our dissection. We continued to clear posterior to the gallbladder. There was a small posterior artery branch. There were no other structures entering the gallbladder. The structures were directly entering the gallbladder. The cystic duct was clearly visible these were clipped with the laparoscopic 10 mm clip, ligated and then gallbladder is taken off the liver bed with Bovie cautery and sent to pathology. There is no bile spillage. There is no bile leaking. Everything is very hemostatic and looked excellent. We completed this and then we turned our attention to her colon. The patient has two obvious redundancies including the transverse colon and the sigmoid colon as described above. We gently elevated the sigmoid colon. This looked like it would lay nicely with a [id number] anastomosis and so we identified our points of resection. We took the mesentery with the LigaSure. We took the colon with the green WILLIAM stapler and we fashioned this planned anastomosis first insuring there were no twists and this colon in its new configuration would lie nicely. We protected our abdominal space. We made two colotomies, one proximal and one at the distal end. We placed 75 WILLIAM stapler, fired this to create our connections and then we removed the excess colon with another 75 WILLIAM staple load and then this excess was sent to pathology. We closed the mesenteric defect with a 3-0 PDS suture with a nicely patent anastomosis. Prior to our final staple we did check for hemostasis which was excellent and the patency which looked excellent and then post final stapler we re-inspected and this appeared to be patent laying nice and looked good. This was then laid back in its normal anatomical position which it lays nicely. The transverse colon was then assessed this looked like it would lay nicely in the same fashion and so we did the exact same maneuver to create a [id number] anastomosis with green WILLIAM stapler 75 and using the LigaSure on mesentery defect again closed in the same fashion with a running 3-0 PDS suture. This again excellent hemostasis, excellent patency, lies very nice and natural. We did have to take the omentum adhesions down in order to resect this otherwise the anastomosis was created exactly the same as the sigmoid. Once this was completed, we then re-inspected all of our surgical sites. Everything looked excellent. The patient does have a slightly elongated appendix. I thought it would be dominguez to resect this clinically given her significant history of right-sided pain, her irregular colon until we then made a window, took the appendiceal blood supply with the LigaSure and then stapled the appendix with a blue load WILLIAM stapler. Staple line looked excellent. We stapled down onto the cecum. The appendix was sent to pathology. No other findings. We then irrigated, did a final check. Closed the fascia with 0 PDS looped suture, used 3-0 Vicryl to bury the fascial stitches and then dulce in skin and a sterile dressing. The patient tolerated the procedure very well. There were no immediate complications. She is going to be admitted for further care. I have discussed with her the results postoperatively. She is doing well. I also discussed with her friend who she wanted me to talk to afterwards her surgical findings as well as her instructions and she will be admitted to the surgical floor.
[2021-04-29] MEDS ORDERED: NON-FORMULARY ITEM (Sertraline Hcl 100 Mg [Zoloft 100 Mg] 100 MG Tab) PO SCH (10:00)
[2021-04-29] MEDS: ZOLOFT 50 MG TABLET PO SCH (10:31)
[2021-04-29] MEDS: D5W/0.45NS W/ 20mEq KCl 1000 ML 1,000 ML IV SCH (20:51)
[2021-04-29] MEDS: PROTONIX 40 MG IV IV SCH (21:02)
[2021-04-29] MEDS: Restoril 15 MG PO SCH (23:35)
[2021-04-30 06:30] LABS: Hematocrit 33.2 % (35-47); Hemoglobin 10.6 gm/dl (12.0-16.0); Mean Cell Volume 99.4 fl (78-100); Mean Corpuscular Hemoglobin 31.7 pg (26-32); Mean Corpuscular Hgb Concent. 31.9 g/dl (32-36); Mean Platelet Volume 9.5 fl (7.5-11.0); Platelet Count 214 K/mm3 (150-450); Red Blood Count 3.34 M/mm3 (4.1-5.4); Red Cell Distribution Width 14.2 % (11.5-14.0); White Blood Count 7.4 K/mm3 (4.0-10.5)
[2021-04-30 06:48] LABS: ANION GAP 10.1 MEQ/L (5-15); BLOOD UREA NITROGEN 8 mg/dL (7-17); CHLORIDE 104 mmol/L (98-107); Calcium 8.3 mg/dL (8.4-10.2); Carbon Dioxide 25 mmol/L (22-30); EST GLOMERULAR FILTRATION RATE > 60.0 ML/MIN; Glucose 104 mg/dL (74-106); Potassium 3.9 mmol/L (3.5-5.1); SODIUM 135 mmol/L (137-145)
[2021-04-30] MEDS: D5W/0.45NS W/ 20mEq KCl 1000 ML 1,000 ML IV SCH (08:03)
[2021-04-30] MEDS: ZOLOFT 50 MG TABLET PO SCH (09:52)
--- NOTE | 2021-04-30 10:45 | PCM.NOTE ---
Date and Time: 04/30/21 1044 Subjective Assessment: doing better - Review of Systems Constitutional: No Fever, No Chills Eyes: No Symptoms Ears, Nose, & Throat: No Symptoms Respiratory: No Cough, No Short Of Breath Cardiac: No Chest Pain, No Edema, No Syncope Abdominal/Gastrointestinal: No Abdominal Pain, No Nausea, No Vomiting, No Diarrhea Genitourinary Symptoms: No Dysuria Musculoskeletal: No Back Pain, No Neck Pain Skin: No Rash Neurological: No Dizziness, No Focal Weakness, No Sensory Changes Psychological: No Symptoms Endocrine: No Symptoms Hematologic/Lymphatic: No Symptoms Immunological/Allergic: No Symptoms Objective Exam General Appearance: no apparent distress, alert Neurologic Exam: alert, oriented x 3, cooperative, normal mood/affect, nml cerebellar function, sensation nml, No motor deficits Skin Exam: normal color, warm, dry Wound Assessment: Skin/Wound Assessment Wound/Incision Assessment Start: 04/28/21 17:48 Text: Status: Active Freq: Q4H Protocol: Document 04/30/21 08:00 RDNE (Rec: 04/30/21 10:18 [email or web address] [id number]) Wound/Incision Assessment Medial Back Wound Assessment Shift Assessment Wound Type epidural site Wound Stage Non Pressure Wound Dressing Status Dry & Intact Drainage Odor None/Absent right Groin Wound Assessment Shift Assessment Wound Type Incision Wound Stage Non Pressure Wound Dressing Status Dry & Intact Drainage Amount None Drainage Odor None/Absent Primary Dressing boarder gauze dressing Comment scant shadowing noted;area marked midline anterior ABD Wound Assessment Shift Assessment Wound Type Incision Wound Stage Non Pressure Wound Dressing Status Dry & Intact Drainage Amount None Drainage Odor None/Absent Primary Dressing boarder gauze dressing Comment no difficulties noted, ABD binder also in place Wound Photo Photo Taken No Eye Exam: PERRL, EOMI, eyes nml inspection Ears, Nose, Throat Exam: normal ENT inspection, pharynx normal, moist mucous membranes Neck Exam: normal inspection, non-tender, supple, full range of motion Respiratory Exam: normal breath sounds, lungs clear, No respiratory distress Cardiovascular Exam: regular rate/rhythm, normal heart sounds Gastrointestinal/Abdomen Exam: soft, No tenderness, No mass Extremity Exam: normal inspection, normal range of motion Back Exam: normal inspection, normal range of motion, No CVA tenderness, No vertebral tenderness Pelvic Exam: deferred Rectal Exam: deferred OBJECTIVE DATA Vital Signs: Vital Signs - 24 hr Temp Pulse Resp BP Pulse Ox 04/30/21 08:00 97.3 F 71 18 133/62 96 04/30/21 06:57 97 04/30/21 06:00 17 04/30/21 04:00 97.7 F 73 17 123/60 96 04/30/21 00:17 97.7 F 76 18 130/63 95 04/30/21 00:00 18 04/29/21 21:22 77 04/29/21 19:46 101.4 F 84 18 135/68 97 04/29/21 18:55 96 04/29/21 18:00 24 04/29/21 16:00 98.4 F 74 24 121/59 96 04/29/21 12:00 99.5 F 80 19 119/56 95 Pain Assessment - Last Documented Pain Intensity 0 Pain Scale Used 0-10 Pain Scale Intake and Output: Intake & Output 04/27/21 04/28/21 04/29/21 04/30/21 11:59 11:59 11:59 11:59 Intake Total 988 2754 Output Total 900 1125 Balance 88 1629 Weight 61.5 kg 69.7 kg Lab Results: Lab Results-Last 24 Hours 04/30/21 04/30/21 Range/Units 05:30 05:30 WBC 7.4 (4.0-10.5) K/mm3 RBC 3.34 L (4.1-5.4) M/mm3 Hgb 10.6 L (12.0-16.0) gm/dl Hct 33.2 L (35-47) % MCV 99.4 (78-100) fl MCH 31.7 (26-32) pg MCHC 31.9 L (32-36) g/dl RDW 14.2 H (11.5-14.0) % Plt Count 214 (150-450) K/mm3 MPV 9.5 (7.5-11.0) fl Sodium 135 L (137-145) mmol/L Potassium 3.9 D (3.5-5.1) mmol/L Chloride 104 (98-107) mmol/L Carbon Dioxide 25 (22-30) mmol/L Anion Gap 10.1 (5-15) MEQ/L BUN 8 (7-17) mg/dL Creatinine 0.40 L (0.52-1.04) mg/dL Estimated GFR > 60.0 ML/MIN Glucose 104 (74-106) mg/dL Calcium 8.3 L (8.4-10.2) mg/dL Assessment/Plan (1) S/P partial colectomy Current Visit: Yes Status: Acute Code(s): Z90.49 - ACQUIRED ABSENCE OF OTHER SPECIFIED PARTS OF DIGESTIVE TRACT (2) Abdominal pain Current Visit: Yes Status: Acute Qualifiers: Abdominal location: generalized Qualified Code(s): R10.84 - Generalized abdominal pain Code(s): R10.9 - UNSPECIFIED ABDOMINAL PAIN
[2021-04-30] MEDS ORDERED: clonazePAM PO SCH (20:00)
[2021-04-30] MEDS: Restoril 15 MG PO SCH (22:15)
[2021-04-30] MEDS: Protonix 40MG Tablet PO SCH (22:15)
[2021-05-01 06:47] LABS: Hematocrit 31.2 % (35-47); Hemoglobin 9.8 gm/dl (12.0-16.0); Mean Corpuscular Hemoglobin 31.7 pg (26-32); Mean Corpuscular Hgb Concent. 31.4 g/dl (32-36); Mean Platelet Volume 9.7 fl (7.5-11.0); Platelet Count 209 K/mm3 (150-450); Red Blood Count 3.09 M/mm3 (4.1-5.4); Red Cell Distribution Width 14.1 % (11.5-14.0); White Blood Count 5.8 K/mm3 (4.0-10.5)
[2021-05-01 07:12] LABS: ANION GAP 7.6 MEQ/L (5-15); BLOOD UREA NITROGEN 6 mg/dL (7-17); CHLORIDE 103 mmol/L (98-107); Calcium 8.2 mg/dL (8.4-10.2); Carbon Dioxide 29 mmol/L (22-30); Creatinine 1 0.35 mg/dL (0.52-1.04); EST GLOMERULAR FILTRATION RATE > 60.0 ML/MIN; Glucose 80 mg/dL (74-106); Potassium 3.6 mmol/L (3.5-5.1); SODIUM 135 mmol/L (137-145)
--- NOTE | 2021-05-01 08:04 | PCM.NOTE ---
Date and Time: 05/01/21802 Subjective Assessment: doing better - Review of Systems Constitutional: No Fever, No Chills Eyes: No Symptoms Ears, Nose, & Throat: No Symptoms Respiratory: No Cough, No Short Of Breath Cardiac: No Chest Pain, No Edema, No Syncope Abdominal/Gastrointestinal: No Abdominal Pain, No Nausea, No Vomiting, No Diarrhea Genitourinary Symptoms: No Dysuria Musculoskeletal: No Back Pain, No Neck Pain Skin: No Rash Neurological: No Dizziness, No Focal Weakness, No Sensory Changes Psychological: No Symptoms Endocrine: No Symptoms Hematologic/Lymphatic: No Symptoms Immunological/Allergic: No Symptoms Objective Exam General Appearance: no apparent distress, alert Neurologic Exam: alert, oriented x 3, cooperative, normal mood/affect, nml cerebellar function, sensation nml, No motor deficits Skin Exam: normal color, warm, dry Wound Assessment: Skin/Wound Assessment Wound/Incision Assessment Start: 04/28/21 17:48 Text: Status: Active Freq: Q4H Protocol: Document 05/01/21 04:00 AW (Rec: 05/01/21 04:57 AW [id number]) Wound/Incision Assessment Medial Back Wound Assessment Shift Assessment Wound Type epidural site Wound Stage Non Pressure Wound Dressing Status Dry & Intact Drainage Odor None/Absent right Groin Wound Assessment Shift Assessment Wound Type Incision Wound Stage Non Pressure Wound Dressing Status Dry & Intact Drainage Amount None Drainage Odor None/Absent Primary Dressing boarder gauze dressing Comment scant shadowing noted;area marked midline anterior ABD Wound Assessment Shift Assessment Wound Type Incision Wound Stage Non Pressure Wound Dressing Status Dry & Intact Drainage Amount None Drainage Odor None/Absent Primary Dressing boarder gauze dressing Comment no difficulties noted, ABD binder also in place Wound Photo Photo Taken No Eye Exam: PERRL, EOMI, eyes nml inspection Ears, Nose, Throat Exam: normal ENT inspection, pharynx normal, moist mucous membranes Neck Exam: normal inspection, non-tender, supple, full range of motion Respiratory Exam: normal breath sounds, lungs clear, No respiratory distress Cardiovascular Exam: regular rate/rhythm, normal heart sounds Gastrointestinal/Abdomen Exam: soft, No tenderness, No mass Extremity Exam: normal inspection, normal range of motion Back Exam: normal inspection, normal range of motion, No CVA tenderness, No marilu tebral tenderness Pelvic Exam: deferred Rectal Exam: deferred OBJECTIVE DATA Vital Signs: Vital Signs - 24 hr Temp Pulse Resp BP Pulse Ox 12/05/21 06:00 18 05/01/21 04:00 97.5 F 62 18 116/59 99 05/01/21 00:00 16 04/30/21 23:45 98.2 F 74 16 109/58 96 04/30/21 19:59 100.4 F 81 18 122/65 97 04/30/21 19:20 97 04/30/21 16:00 98.0 F 74 18 134/60 100 04/30/21 12:00 98.7 F 72 18 145/66 97 Pain Assessment - Last Documented Pain Intensity 0 Pain Scale Used 0-10 Pain Scale Intake and Output: Intake & Output 04/28/21 04/29/21 04/30/21 05/01/21 11:59 11:59 11:59 11:59 Intake Total 988 2754 915 Output Total 900 1125 500 Balance 88 1629 415 Weight 61.5 kg 69.7 kg Lab Results: Lab Results-Last 24 Hours 05/01/21 05/01/21 Range/Units 05:25 05:25 WBC 5.8 (4.0-10.5) K/mm3 RBC 3.09 L (4.1-5.4) M/mm3 Hgb 9.8 L (12.0-16.0) gm/dl Hct 31.2 L (35-47) % MCV 101.0 H (78-100) fl MCH 31.7 (26-32) pg MCHC 31.4 L (32-36) g/dl RDW 14.1 H (11.5-14.0) % Plt Count 209 (150-450) K/mm3 MPV 9.7 (7.5-11.0) fl Sodium 135 L (137-145) mmol/L Potassium 3.6 (3.5-5.1) mmol/L Chloride 103 (98-107) mmol/L Carbon Dioxide 29 (22-30) mmol/L Anion Gap 7.6 (5-15) MEQ/L BUN 6 L (7-17) mg/dL Creatinine 0.35 L (0.52-1.04) mg/dL Estimated GFR > 60.0 ML/MIN Glucose 80 (74-106) mg/dL Calcium 8.2 L (8.4-10.2) mg/dL Assessment/Plan (1) S/P partial colectomy Current Visit: Yes Status: Acute Code(s): Z90.49 - ACQUIRED ABSENCE OF OTHER SPECIFIED PARTS OF DIGESTIVE TRACT (2) Abdominal pain Current Visit: Yes Status: Acute Qualifiers: Abdominal location: generalized Qualified Code(s): R10.84 - Generalized abdominal pain Code(s): R10.9 - UNSPECIFIED ABDOMINAL PAIN
[2021-05-01] MEDS: Protonix 40MG Tablet PO SCH (10:26)
[2021-05-01] MEDS: ZOLOFT 50 MG TABLET PO SCH (10:26)
[2021-05-01] MEDS: NORCO 5/325 MG PO PRN ×2 (12:58→21:50)
[2021-05-01] MEDS: MAALOX ES 30 ML UNIT DOSE PO PRN ×2 (12:58→21:00)
[2021-05-01] MEDS ORDERED: DEMADEX 20 MG PO PRN (18:47)
[2021-05-01] MEDS: clonazePAM PO PRN (20:57)
[2021-05-01] MEDS: Restoril 15 MG PO SCH (20:57)
[2021-05-02 05:52] LABS: Hematocrit 33.3 % (35-47); Hemoglobin 10.8 gm/dl (12.0-16.0); Mean Cell Volume 98.5 fl (78-100); Mean Corpuscular Hgb Concent. 32.4 g/dl (32-36); Mean Platelet Volume 9.6 fl (7.5-11.0); Platelet Count 213 K/mm3 (150-450); Red Blood Count 3.38 M/mm3 (4.1-5.4); Red Cell Distribution Width 13.6 % (11.5-14.0); White Blood Count 4.5 K/mm3 (4.0-10.5)
[2021-05-02 06:16] LABS: ANION GAP 12.8 MEQ/L (5-15); BLOOD UREA NITROGEN 4 mg/dL (7-17); CHLORIDE 95 mmol/L (98-107); Calcium 8.2 mg/dL (8.4-10.2); Carbon Dioxide 30 mmol/L (22-30); Creatinine 1 0.31 mg/dL (0.52-1.04); EST GLOMERULAR FILTRATION RATE > 60.0 ML/MIN; Glucose 75 mg/dL (74-106); SODIUM 135 mmol/L (137-145)
[2021-05-02 06:22] LABS: Potassium 2.9 mmol/L (3.5-5.1)
[2021-05-02] MEDS ORDERED: DEMADEX 20 MG PO PRN (06:53)
[2021-05-02] MEDS ORDERED: Klor Con 10 MEQ PO ONE ×2 (08:00→17:00)
[2021-05-02] MEDS: NORCO 5/325 MG PO PRN ×2 (08:06→18:37)
[2021-05-02] MEDS: Protonix 40MG Tablet PO SCH (08:09)
[2021-05-02] MEDS: ZOLOFT 50 MG TABLET PO SCH (08:10)
[2021-05-02] MEDS: MAALOX ES 30 ML UNIT DOSE PO PRN (18:37)
[2021-05-02] MEDS: Restoril 15 MG PO SCH (21:34)
[2021-05-02] MEDS: clonazePAM PO PRN (21:34)
[2021-05-02] MEDS ORDERED: ENOXAPARIN SODIUM SQ SCH (22:00)
[2021-05-02] MEDS ORDERED: Heparin 5000 UNITS/0.5 ML (HIGH RISK MED) SQ SCH (22:00)
[2021-05-03 05:17] VITALS: PULSE 68
[2021-05-03 06:28] LABS: Absolute Neutrophil Ct (ANC) 2.63 (1.4-6.9); Basophil (Absolute #) 0.04 (0-0.4); Eosinophil % 4.8 % (0.00-5.0); Hematocrit 35.2 % (35-47); Hemoglobin 11.3 gm/dl (12.0-16.0); Lymphocyte (Absolute #) 0.73 (1.0-4.6); Lymphocytes % 17.5 % (24.0-44.0); Mean Cell Volume 98.9 fl (78-100); Mean Corpuscular Hemoglobin 31.7 pg (26-32); Mean Corpuscular Hgb Concent. 32.1 g/dl (32-36); Monocyte (Absolute #) 0.58 (0.0-1.3); Monocytes % 13.9 % (0.0-12.0); Neutrophil % 62.8 % (36.0-66.0); Platelet Count 234 K/mm3 (150-450); Red Blood Count 3.56 M/mm3 (4.1-5.4); Red Cell Distribution Width 13.5 % (11.5-14.0); White Blood Count 4.2 K/mm3 (4.0-10.5)
[2021-05-03 06:40] LABS: ALBUMIN 3.5 g/dL (3.5-5.0); ALKALINE PHOSPHATASE 180 U/L (38-126); ANION GAP 10.4 MEQ/L (5-15); BLOOD UREA NITROGEN 8 mg/dL (7-17); CHLORIDE 95 mmol/L (98-107); Calcium 8.6 mg/dL (8.4-10.2); Carbon Dioxide 34 mmol/L (22-30); Creatinine 1 0.37 mg/dL (0.52-1.04); EST GLOMERULAR FILTRATION RATE > 60.0 ML/MIN; Glucose 94 mg/dL (74-106); Potassium 3.7 mmol/L (3.5-5.1); SGOT/AST 63 U/L (14-36); SGPT/ALT 59 U/L (0-35); SODIUM 135 mmol/L (137-145); Total Protein 6.2 g/dL (6.3-8.2)
[2021-05-03 07:12] VITALS: BP 130/64; O2SAT 96
[2021-05-03] MEDS: NORCO 5/325 MG PO PRN (09:44)
[2021-05-03] MEDS: ZOLOFT 50 MG TABLET PO SCH (09:44)
[2021-05-03] MEDS: Protonix 40MG Tablet PO SCH (09:44)
[2021-05-03] MEDS ORDERED: Miralax Powder 17GM PACKET PO SCH (10:00)
--- NOTE | 2021-05-04 09:11 | DS ---
DISCHARGE DIAGNOSES: 1) LAPAROTOMY WITH PARTIAL COLECTOMY. 2) CHOLECYSTECTOMY. 3) INGUINAL HERNIA REPAIR. 4) FEMORAL HERNIA REPAIR. HOSPITAL COURSE: The patient is a 75-year-old white female who was felt the need to have evaluation of colon. She had exploratory laparotomy concerning for possible cancer. The patient had partial colectomy in the sigmoid and transverse colon area. She had an appendectomy, cholecystectomy and femoral hernia repair. The patient has done well postoperatively. She had slow return of her bowel activity but she was able to take clear liquids and advance to a regular diet by 05/02/2021. The patient did have an episode of hypokalemia which resolved with oral potassium. Upon discharge her hemoglobin was 11.3, white count 4.2, PLT count 234,000. Metabolic panel showed her BUN to be 8, creatinine 0.37. She had slight elevation of SGOT 63 and SGPT 59. The patient was felt to be ready for discharge home on 05/03/2021 with instructions to follow up with surgery in the next week and to follow up with her primary care provider, Mary Maxwell, next week as well. She is to call if she has any problems in the interim.
== END 2021-05-03 12:10 | disposition home or self-care (01) | DRG 330 ==
LOC: MED SURG 07:40 → EDSTATUS 14:29
PROVIDERS: ADMIT Surgery; ATTEND Surgery
PROC: 0DBN0ZZ Excision of Sigmoid Colon, Open Approach (ICD-10-PCS; principal; 2021-04-28)
PROC: 0DBN0ZZ Excision of Sigmoid Colon, Open Approach (ICD-10-PCS; 2021-04-28)
PROC: 0DBL0ZZ Excision of Transverse Colon, Open Approach (ICD-10-PCS; 2021-04-28)
PROC: 0FT40ZZ Resection of Gallbladder, Open Approach (ICD-10-PCS; 2021-04-28)
PROC: 0DTJ0ZZ Resection of Appendix, Open Approach (ICD-10-PCS; 2021-04-28)
PROC: 0DQV0ZZ Repair Mesentery, Open Approach (ICD-10-PCS; 2021-04-28)
DX: K59.09 Other constipation (principal); Q43.8 Other specified congenital malformations of intestine; K80.10 Calculus of gallbladder with chronic cholecystitis without obstruction; K41.90 Unilateral femoral hernia, without obstruction or gangrene, not specified as recurrent; R10.84 Generalized abdominal pain; E87.6 Hypokalemia
CPT/HCPCS: 36415; 62324; 64488; 76937; 76942; 80048; 80053; 81001; 85025; 85027; 86850; 86900; 86901; 87086; 88304; 88307; 94762; 99100; J0171; J0694; J1100; J1610; J1650; J2060; J2175; J2250; J2405; J2704; J2795; J3010; L0625; A9270-GY

== ENCOUNTER 2021-09-05 10:30 | Day surgery (SDC) | payer MEDICARE ==
[2021-09-05] MEDS ORDERED: GlucaGen 1 MG IM ONE (10:31)
[2021-09-05] MEDS ORDERED: Lactated Ringers 1,000 ML IV ONE ×3 (11:05→14:47)
[2021-09-05] MEDS ORDERED: Lactated Ringers 1,000 ML IV SCH (11:30)
[2021-09-05] MEDS ORDERED: XYLOCAINE 1% HCL 20 ML MDV ONE (12:19)
[2021-09-05] MEDS ORDERED: Xylocaine-Mpf 2% 5 Ml Vial ONE (13:01)
[2021-09-05] MEDS ORDERED: DIPRIVAN 200 MG/20 ML IV ONE ×3 (13:01→14:30)
[2021-09-05 15:47] VITALS: BP 147/71
[2021-09-05 16:09] VITALS: PULSE 58; O2SAT 100
--- NOTE | 2021-10-03 08:05 | OP ---
PROCEDURE DATE/TIME: 09/05/2021 1302 PREOPERATIVE DIAGNOSES: 1) History of colon polyp. 2) Reflux disease. 3) History of peptic ulcer disease. 4) Skin lesion on back. POSTOPERATIVE DIAGNOSES: 1) Skin lesion on back. 2) Gastric polyp. 3) Mid esophageal polyp. 4) Mid esophageal plaque. 5) Hiatal hernia. 6) Gastritis. 7) Colon polyp. 8) Hemorrhoidal disease. 9) Diverticulosis. PROCEDURES: 1) Excision of skin lesion on the back 1.2 x 0.5 x 0.4 cm. 2) EGD with biopsy. 3) Colonoscopy with cold snare polypectomy. PROCEDURE PERFORMED BY: Amanda Bañuelos M.D. ANESTHESIA: MAC. ESTIMATED BLOOD LOSS: Minimal. COMPLICATIONS: None. SPECIMENS: 1) Skin lesion of the back with postoperative biopsy. 2) Gastroesophageal junction polyp. 3) Gastric body biopsy. 4) Gastric antrum biopsy. 5) Ascending colon polyp. HISTORY: This is a patient who presented for an excision of a skin lesion on her back as well as history of colon polyps here for colonoscopy and history of peptic ulcer disease with active reflux symptoms. She presents for EGD. Risks, benefits, alternatives, H&P, consent all reviewed with her and confirmed. She was marked personally in the preoperative area. DESCRIPTION OF PROCEDURE: She was then brought back to the endoscopy suite. First the patient was laid in the left lateral decubitus position. Anesthesia was induced. She was prepped and draped sterilely. I made an elliptical incision through the skin and subcutaneous tissue to completely excise the skin lesion. The total site is approximately 1.2 x 0.5 x 0.4 cm. The entire lesion was excised with a minimal margin. The entire lesion was excised with a minimal margin for biopsy purposes and this was sent for pathology. The wound was irrigated and then closed with interrupted suture and sterile dressing. The patient tolerated this part of the procedure very well. No complications. We then did another complete time out and then we started her endoscopy. First, the scope was inserted into the mouth, oropharynx, down into the esophagus, stomach and duodenum. The duodenum looked normal. The scope was drawn back into the stomach. The patient did have gastritis this was most obvious in her antrum but was also throughout the rest of her gastric body. I did not see any ulcer. On retroflex view she does have a hiatal hernia this is small. We took biopsies in the antrum and the gastric body where she had gross appearing inflammation. We insured hemostasis. I did not find any other lesions of concern and then the scope was withdrawn back into the distal esophagus. Her hiatal hernia was revisualized. Her gastroesophageal junction is at approximately 36 cm. She did have some reflux. We took distal esophagus biopsies to check for esophagitis and Moore's esophagus. She also had a mid-esophageal plaque and a mid-esophageal polyp which were biopsied. These were very subtle and appeared to be benign on gross visualization and then the scope was completely withdrawn. The patient tolerated the procedure very well. Everything looked hemostatic. We then proceeded to her colonoscopy. First, a rectal exam was performed. The patient does have hemorrhoids. The scope was then inserted and gently advanced to the level of the cecum. Appendiceal orifice and ileocecal valve were visualized and then the scope was carefully withdrawn. The prep was satisfactory for evaluation for significant polyp but it was fair throughout the colon with thick stool that was irrigated and suctioned and some thin layered adherent stool. We did attempt to copiously irrigate any of this stool and our overall view was satisfactory but not perfect. In the colon, I found one polyp in the ascending colon this was about 3 to 5 mm and it was taken with a cold snare in its entirety and sent to pathology. The site was hemostatic. She does have significant diverticulosis as well as internal and external hemorrhoidal disease and then scope was completely withdrawn. The patient tolerated the procedure very well. There were no immediate complications. She will benefit from good water intake, a fiber powder supplement and avoid any straining. Her tattoo sites were clear. Her connections were clear. Her hepatic flexure and rectosigmoid connections looked excellent. The rectosigmoid was at 17 cm. PLAN: Tentatively I will plan for a colonoscopy in three years since her prep was satisfactory and she did have one polyp but her prep was not ideal to rule out very small lesions. I will also plan to see her back in approximate one year due to her chronic hemorrhoid disease as well and she will follow up with me as needed for her reflux disease. She will also follow up in the office to discuss the final results.
== END 2021-09-05 16:10 | disposition home or self-care (01) ==
LOC: SDC 10:30
PROVIDERS: ATTEND Surgery
DX: D12.2 Benign neoplasm of ascending colon (principal); Z86.010 Personal history of colon polyps; K21.9 Gastro-esophageal reflux disease without esophagitis; K44.9 Diaphragmatic hernia without obstruction or gangrene; K29.70 Gastritis, unspecified, without bleeding; K57.30 Diverticulosis of large intestine without perforation or abscess without bleeding; L85.9 Epidermal thickening, unspecified; K64.4 Residual hemorrhoidal skin tags; K64.8 Other hemorrhoids; K31.7 Polyp of stomach and duodenum
CPT/HCPCS: 88305; 99100; J1610; J2704

== ENCOUNTER 2023-08-06 12:39 | Day surgery (SDC) | payer MEDICARE ==
[2023-08-06] MEDS ORDERED: Lactated Ringers 1,000 ML IV ONE ×2 (12:54→14:50)
[2023-08-06] MEDS: Lactated Ringers 1,000 ML IV SCH (12:59)
[2023-08-06] MEDS: CEFAZOLIN 2 GM-D5W BAG** 2 GM/50 ML ML IV SCH (13:25)
[2023-08-06] MEDS ORDERED: Amidate 20 MG/10 ML IV ONE (14:01)
[2023-08-06] MEDS ORDERED: Zofran 4 MG/2 ML VIAL ONE (14:01)
[2023-08-06] MEDS ORDERED: DIPRIVAN 200 MG/20 ML IV ONE (14:01)
[2023-08-06] MEDS ORDERED: Xylocaine-Mpf 2% 5 Ml Vial ONE (14:01)
[2023-08-06] MEDS ORDERED: Decadron 4 MG INJ ONE (14:01)
[2023-08-06] MEDS ORDERED: Quelicin Fliptop 200 MG/10 ML ONE (14:08)
[2023-08-06] MEDS ORDERED: PHENYLEPHRINE HCL ONE (14:09)
[2023-08-06] MEDS ORDERED: SUBLIMAZE 100 MCG/2 ML ONE ×2 (14:15→16:41)
[2023-08-06] MEDS ORDERED: BREVIBLOC 100 MG/10 ML IV ONE (14:35)
[2023-08-06] MEDS ORDERED: Ephedrine Sulfate 50 MG/ML ONE (14:41)
[2023-08-06] MEDS ORDERED: Sensorcaine 0.25% 10 ML ONE (14:50)
[2023-08-06 17:18] VITALS: RESP 18
[2023-08-06 17:38] VITALS: BP 146/74; PULSE 72; TEMP 98.1; O2SAT 95
--- NOTE | 2023-08-15 08:33 | OP ---
PROCEDURE DATE/TIME: 08/06/2023 1421 PREOPERATIVE DIAGNOSIS: Multiple skin lesions including two sites of squamous cell carcinoma, one at the right lower leg and one at the right upper extremity and actinic keratosis lesion of the left upper extremity. POSTOPERATIVE DIAGNOSIS: Multiple skin lesions including two sites of squamous cell carcinoma, one at the right lower leg and one at the right upper extremity and actinic keratosis lesion of the left upper extremity with final pathology pending. PROCEDURES: 1) Wide excision squamous cell carcinoma right upper extremity 12 x 3.7 cm. 2) Wide excision squamous cell carcinoma right lower leg 9.5 x 3 cm. 3) Excision of skin lesion left upper extremity (possibly premalignant) 4.75 x 1.75 cm. PROCEDURE PERFORMED BY: Amanda Bañuelos M.D. ESTIMATED BLOOD LOSS: Minimal less than 5 cc. ANESTHESIA: General. COMPLICATIONS: None. SPECIMENS: Right upper extremity squamous cell carcinoma, right lower extremity squamous cell carcinoma, left upper extremity actinic keratosis with final pathology pending. HISTORY: This is a 78-year-old female who presented with multiple skin lesions that have been previously biopsied in the office and she is here for definitive surgical treatment for two sites of squamous cell carcinoma and to remove a site of actinic keratosis. Risks, benefits and alternatives have been discussed with the patient preoperatively. She understands and agrees and wants to proceed. She was seen in the preoperative area. All sites were confirmed with her awake and alert, marked carefully. Her consent was reviewed and confirmed. All questions answered to her satisfaction. DESCRIPTION OF PROCEDURE: She was then brought back to the operative suite. Anesthesia introduced. She was prepped and draped in usual sterile fashion. Complete time out performed. I first turned my attention to the left upper extremity region. I made an elliptical incision sharply through skin down to the level of the subcutaneous tissue with a 15 blade and then carefully excised the skin lesion in entirety using Bovie cautery. We stayed in the subcutaneous tissue plane. The site was then irrigated and closed with 0 Vicryl and 4-0 subcuticular Monocryl stitch, Steri-Strips and sterile dressing. We then turned our attention to the right upper extremity this was excised sharply with a 15 blade in elliptical fashion taking a good margin. I did measure the lesion itself and then I measured out at least 0.5 cm margin around the entire periphery of the lesion site to insure a good gross negative margin. We excised this taking the full dermal thickness down to the level of the subcutaneous tissue plane. We then raised flap slightly to allow closure without any tension. The patient did have excess tissue here, which helped to have a nice tension free closure. We irrigated and insured hemostasis and then we closed with buried 3-0 Vicryl, running 4-0 subcuticular Monocryl stitch, Steri-Strips and sterile dressing. The exact same procedure was then performed on the right lower extremity. The lesion was clearly identified. I marked 0.5 cm around the periphery of the entire lesion this was turned into a vertically oriented ellipse similar to the type on arm, sharply excised down to the level of the subcutaneous tissue with a 15 blade and then Bovie cautery used to fully excise it. Flap raised laterally and medially and then sutured closed with a 3-0 Vicryl running 4-0 subcuticular Monocryl stitch, Steri-Strips and sterile dressing. All lesions were excised with the appropriate gross margin, taking a full dermal level. We did not go deeper than the subcutaneous tissue. All sites have been closed with good hemostasis and sterile dressings applied. The patient tolerated the procedure very well. There were no immediate complications. He is going to be following up with me as an outpatient to check the healing and discuss final pathology results.
== END 2023-08-06 18:10 | disposition home or self-care (01) ==
LOC: SDC 12:39
PROVIDERS: ATTEND Surgery
DX: D04.71 Carcinoma in situ of skin of right lower limb, including hip (principal); D04.61 Carcinoma in situ of skin of right upper limb, including shoulder; L57.0 Actinic keratosis
CPT/HCPCS: 88305; 99100; J0330; J0690; J1100; J2371; J2405; J2704; J3010

== ENCOUNTER 2023-10-08 19:54 | Emergency (ER) | payer MEDICARE ==
--- NOTE | 2023-10-08 19:59 | ERPHSYRPT ---
- History of Present Illness Time Seen by Provider: 10/08/23 19:58 Source: patient Exam Limitations: no limitations Physician History: This is a right-handed 70-year-old white female patient of nurse practitioner Hans. The patient was working in her yard and was suffered a less than 1 cm laceration to the dorsal aspect proximal knuckle first digit left hand. She was concerned about not having an up-to-date tetanus. She was working in the [employer]. She was trying to clean is much as possible. Timing/Duration: today Quality: painful Severity: mild Location: hands (Left first digit dorsal aspect laceration) Associated Symptoms: denies symptoms Allergies/Adverse Reactions: pollen extracts Allergy (Intermediate, Verified 10/08/23 19:59) Shortness of Breath theophylline Allergy (Mild, Verified 10/08/23 19:59) butorphanol [From Stadol] Adverse Reaction (Severe, Verified 10/08/23 19:59) hallucinations ibuprofen Adverse Reaction (Intermediate, Verified 10/08/23 19:59) Stomach Pain morphine Adverse Reaction (Mild, Verified 10/08/23 19:59) hallucinate Opioids - Morphine Analogues Adverse Reaction (Mild, Verified 10/08/23 19:59) constipation and nausea and vomiting versed Allergy (Uncoded 10/08/23 19:59) Home Medications: Sertraline HCl 100 mg [Zoloft 100 MG] 100 mg PO DAILY 08/22/14 [History] Multivit-Min/FA/Lycopen/Lutein [Centrum Silver Tablet] 1 each PO DAILY 09/26/18 [History] Temazepam [Restoril] 30 mg PO HS 09/26/18 [History] Torsemide 20 mg [Demadex 20 mg] 10 mg PO DAILY PRN PRN 09/26/18 [History] Vitamin E (Dl,Tocopheryl Acet) [Vitamin E] 400 units PO DAILY 07/26/20 [History] Cetirizine HCl [Zyrtec] 10 mg PO DAILY PRN 04/25/21 [History] Albuterol Sulfate [Albuterol Sulfate Hfa] 2 puffs IH UD 07/24/23 [History] Alendronate Sodium 70 mg [Fosamax 70 MG] 70 mg PO UD 07/24/23 [History] Esomeprazole Magnesium [Nexium 24Hr] 20 mg PO DAILY 08/06/23 [History] Pregabalin [Lyrica] 75 mg PO DAILY 08/06/23 [History] Hx Tetanus, Diphtheria Vaccination/Date Given: Yes (2011) Hx Influenza Vaccination/Date Given: Yes Hx Pneumococcal Vaccination/Date Given: Yes Travel Risk - International Travel Have you traveled outside of the country in past 3 weeks: No - Emerging Infectious Disease Are you exhibiting symptoms associated with any current EIDs: No - Review of Systems Constitutional: No Symptoms Eyes: No Symptoms Ears, Nose, & Throat: No Symptoms Respiratory: No Symptoms Cardiac: No Symptoms Abdominal/Gastrointestinal: No Symptoms Genitourinary Symptoms: No Symptoms Musculoskeletal: No Symptoms Skin: Other (Laceration dorsal aspect left thumb) Neurological: No Symptoms Psychological: No Symptoms Endocrine: No Symptoms Hematologic/Lymphatic: No Symptoms Immunological/Allergic: No Symptoms All Other Systems: Reviewed and Negative - Past Medical History Pertinent Past Medical History: Yes Neurological History: Other ENT History: No Pertinent History Cardiac History: Other Respiratory History: COPD, Other Endocrine Medical History: Hypothyroidism Musculoskeletal History: Osteoporosis, Other GI Medical History: Diverticulitis, Ulcer, Irritable Bowel, GERD History: No Pertinent History Psycho-Social History: Depression, Anxiety Female Reproductive Disorders: No Pertinent History Other Medical History: INGUINEAL HERNIA FIXED. NEUROLOGICAL PROBLEMS IN THE L LE DUE TO NERVE COMPRESSION IN THE BACK. SCLEROTIC HEART VALVES. - Past Surgical History Past Surgical History: Yes Neuro Surgical History: No Pertinent History Cardiac: No Pertinent History Respiratory: No Pertinent History Gastrointestinal: Hemorrhoidectomy Genitourinary: No Pertinent History Musculoskeletal: Orthopedic Surgery Female Surgical History: Hysterectomy, Dilation & Curettage Other Surgical History: Left SHOULDER SURGERY(rotat. cuff shredded ,repaired) BACK SURGERY (L3,L4 and buldging repair) left knee (replaced) oral surgery post for dentures, jasson cataract removed and lens placed - Social History Smoking Status: Never smoker Exposure to second hand smoke: No Drug Use: none Patient Lives Alone: No - Nursing Vital Signs Nursing Vital Signs: Initial Vital Signs Temperature 98.3 F 10/08/23 20:00 Pulse Rate 72 10/08/23 20:00 Respiratory Rate 18 10/08/23 20:00 Blood Pressure 149/83 10/08/23 20:00 O2 Sat by Pulse Oximetry 96 10/08/23 20:00 Pain Scale Pain Intensity 2 - Physical Exam General Appearance: no apparent distress, alert, anxiety Eye Exam: PERRL/EOMI, eyes nml inspection Ears, Nose, Throat Exam: normal ENT inspection, moist mucous membranes Neck Exam: normal inspection, non-tender, supple, full range of motion Respiratory Exam: No chest tenderness, No respiratory distress Gastrointestinal/Abdomen Exam: No tenderness Pelvic Exam: not done Rectal Exam: not done Back Exam: normal inspection, normal range of motion, No CVA tenderness, No vertebral tenderness Extremity Exam: normal range of motion, lacerations (Approximately 0.5 cm laceration horizontally oriented across the base of the left first digit. No foreign body present. 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 No foreign body noted. The wound is clean) Irrigated: Yes Hibiclens Prep: Yes Wound Repaired With: Steri-strips, Dermabond - Course Nursing assessment & vital signs reviewed: Yes Ordered Tests: Medication Summary Discontinued Medications Generic Name Dose Route Start Last Admin Trade Name Freq PRN Reason Stop Dose Admin Diphtheria/Tetanus/Acell Pertussis 0.5 ml 10/08/23 21:01 10/08/23 21:21 Tdap --Diph,Pertuss(Acell),Tet Vac/Pf 0.5 Ml Vial IM 10/08/23 21:02 0.5 ml .ONCE ONE Administration Diphtheria/Tetanus/Acell Pertussis Confirm 10/08/23 21:21 Tdap --Diph,Pertuss(Acell),Tet Vac/Pf 0.5 Ml Vial Administered 10/08/23 21:22 Dose 0.5 ml IM .STK-MED ONE - Progress Progress: improved Progress Note: 10/08/23 21:48 Medical decision making and the assignment of low medical complexity of this medical issue today is based on review of the patient's past medical history, review of the patient's medication list, review the patient drug allergy list, history present illness and physical findings on examination. The patient's workup does not require laboratory radiographic studies. Counseled pt/family regarding: diagnosis, need for follow-up Medical Desision Making - Diagnostic Testing Diagnostic test were ordered, analyzed, and reviewed by me: No - Risk of complications Minimal Risk: Minimal risk of morbidity - Departure Departure Disposition: Home Clinical Impression: Thumb laceration Condition: Stable Critical Care Time: No Referrals: FREDDIE BAUMANN NP [Primary Care Provider] - Follow up/PCP as directed Additional Instructions: Keep the current dressing in place until the evening of 10/09/2023. At that time you may remove the top bandage/dressing and leave the Steri-Strips in place until they fall off. At that time you may allow the soapy water to rinse over the site. Blot dry use a hairspring setter. As the Steri-Strips curl up you may trim them. Do not pull them off. Take the antibiotics as prescribed. Call your primary care provider tomorrow, 10/09/2023 to make arrangements for further evaluation management including being seen in the next 5 to 7 days. Use Tylenol for pain control. Prescriptions: Cephalexin Mh 500 mg [Keflex 500 mg] 500 mg PO TID #21 cap
[2023-10-08 20:06] VITALS: TEMP 98.3
[2023-10-08] MEDS ORDERED: Adacel Vial IM ONE (21:21)
[2023-10-08] MEDS: Adacel Vial IM ONE (21:21)
[2023-10-08 21:23] VITALS: RESP 20
[2023-10-08 21:41] VITALS: BP 153/90; PULSE 67; O2SAT 97
== END 2023-10-08 22:05 | disposition home or self-care (01) ==
LOC: ED 19:54
DX: S61.012A Laceration without foreign body of left thumb without damage to nail, initial encounter (principal); W45.8XXA Other foreign body or object entering through skin, initial encounter; Y93.H2 Activity, gardening and landscaping; Y92.007 Garden or yard of unspecified non-institutional (private) residence as the place of occurrence of the external cause; Z79.899 Other long term (current) drug therapy; Z23 Encounter for immunization
CPT/HCPCS: 12001; 90471; 90715; 99283

== ENCOUNTER 2025-05-04 09:53 | Day surgery (SDC) | payer MEDICARE ==
[2025-05-04 10:29] VITALS: RESP 18
[2025-05-04 10:38] LABS: Calcium 8.9 mg/dL (8.4-10.2); Carbon Dioxide 23.0 mmol/L (22-30); Creatinine 1 0.46 mg/dL (0.52-1.04); EST GLOMERULAR FILTRATION RATE 97.3 ML/MIN; Glucose 93.0 mg/dL (74-106); Potassium 3.8 mmol/L (3.5-5.1)
[2025-05-04] MEDS: Lactated Ringers 1,000 ML IV SCH (11:15)
[2025-05-04] MEDS ORDERED: propofoL IV ONE ×4 (11:27→12:44)
[2025-05-04] MEDS ORDERED: GlucaGen 1 MG ONE (11:45)
[2025-05-04] MEDS ORDERED: Lactated Ringers 1,000 ML IV ONE (12:13)
[2025-05-04 13:23] VITALS: TEMP 97.2; O2SAT 97
[2025-05-04 13:34] VITALS: BP 153/72; PULSE 51
--- NOTE | 2025-05-05 10:47 | OP ---
SURGERY DATE/TIME: 05/04/2025 [id number]. PREOPERATIVE DIAGNOSES: 1) Reflux disease. 2) Due for screening surveillance, personal history of colon polyps. POSTOPERATIVE DIAGNOSES: 1) Mild gastritis. 2) Stable small hiatal hernia. 3) Mild reflux disease. 4) No clinical Moore's disease. 5) Colonic diverticulosis. 6) Colonic polyps. 7) Marginal prep. 8) Hemorrhoid disease with enlarged right posterior internal hemorrhoid. PROCEDURE: 1) Esophagogastroduodenoscopy with biopsies. 2) Colonoscopy with hot snare polypectomy x2 and hot forceps polypectomy x1. SURGEON: Amanda Bañuelos MD. ANESTHESIA: MAC. ESTIMATED BLOOD LOSS: Minimal. COMPLICATIONS: None. SPECIMENS: 1) Antral biopsy, rule out H. pylori. 2) Cecal polyp. 3) Proximal ascending polyps x2. INDICATIONS: This is a patient who presents for EGD and colonoscopy. She and I have known each other for a long time. She understands the risks, benefits, and alternatives of the procedure. We have discussed these together. She would like to proceed with both EGD and colonoscopy, and consent and H and P have both been obtained and completed by me. Patient tolerated prep well, but she prefers the liquid prep as opposed to pill prep, so in the future we will consider using a different prep. She does not feel like she got as good of a clean-out this time. DESCRIPTION OF PROCEDURE AND FINDINGS: She was then brought back to the endoscopy suite, laid in the left lateral decubitus position. A complete time-out was performed. The scope was inserted into the mouth, oropharynx, down into the esophagus, stomach, and then into the duodenum up until the proximal second portion. The visualized duodenum appeared normal. The stomach had mild gastritis throughout. This was patchy throughout the gastric body and in the antrum. I took antral biopsies to rule out H. pylori. There was a small hiatal hernia. This appears to be stable. This was visualized on retroflexed view. We then ensured good hemostasis and no other findings in the stomach, and then the scope was withdrawn to the distal esophagus. The hiatal hernia was again re-visualized. The GE junction was at approximately 36 cm. The hiatal hernia appears to be about 2 cm and sliding type. There was no clinical Moore's here. There was some acute reflux, but again I do not see any obvious Moore's disease, and then we carefully withdrew the scope and the remainder of the esophagus was normal. The patient tolerated the procedure well. She was then repositioned for colonoscopy. First, a rectal inspection and a digital exam was done. There was an enlarged right posterior external and internal hemorrhoid column. She does have a left posterior enlarged column as well, but this was not as large as the right posterior column. There was no acute bleeding at this moment. Please also note that on digital exam, the hemorrhoid tissue was all very soft. There were no firm masses in the rectum and no concerns in the immediate perianal area. The scope was then inserted and gently navigated to the cecum. We did use some gentle abdominal pressure. The patient has 2 anastomoses that appeared healthy as we coursed up to the level of the cecum. In the cecum, we visualized the appendiceal orifice and the ileocecal valve. She had quite a bit of seeds in the colon, and this partially obstructs our view and this was patchy throughout the cecum, ascending colon, and even patchy in the descending and sigmoid and rectal area, so we were not getting a perfect view, but I do feel that I am seeing at least 90% of the mucosa. We did try to irrigate and suction the seeds over and over. We continued to clog the scope and have had to back flush multiple times to get to this level of view. I did also identify that she has diverticulosis pancolonic. The disease was most significant in the sigmoid and it was moderate, and then she had a few scattered diverticula throughout the remainder of the colon, including at the level of the ascending colon. Her old tattoo looks good. There were no polyps in the region of old polypectomy. She does have 2 small new proximal ascending colon polyps. One was about 4 mm to 5 mm, semi-sessile, taken with hot snare and retrieved with the forceps. The second polyp here was 2 mm, taken in entirety with hot forceps, and then there was a sessile cecal polyp that was very sessile and irregular but benign-appearing. This was taken with a hot snare. It was about 6 to 7 mm. A clip was placed here to ensure good hemostasis and closure of the mucosa, and then the polyp was retrieved but this erupted in the trap, so the portions of the polyp were sent to Pathology. All polyps were removed fully and all sites hemostatic at the completion of polypectomy. The scope was then carefully withdrawn, taking a circumferential view, inspecting and irrigating as much as possible despite the high amount of seeds and some thick stool that was scattered throughout the colon, and then we were able to fully withdraw the scope. Both anastomoses were widely patent, slightly did bleed easier since they do have scar. This was not out of the ordinary. There was no gross tear or concern, and then the scope was able to be fully removed. Tentatively, I would consider doing another colonoscopy within the next 2 years since this prep was marginal, but due to her age and risk factors, the risk may be more than the benefit, so she and I will discuss this at a later date, and then I would recommend she do an EGD on an as-needed basis.
== END 2025-05-04 13:41 | disposition home or self-care (01) ==
LOC: SDC 09:53
PROVIDERS: ATTEND Surgery
DX: Z12.11 Encounter for screening for malignant neoplasm of colon (principal); K21.9 Gastro-esophageal reflux disease without esophagitis; K29.70 Gastritis, unspecified, without bleeding; K44.9 Diaphragmatic hernia without obstruction or gangrene; K57.30 Diverticulosis of large intestine without perforation or abscess without bleeding; K64.8 Other hemorrhoids; K64.4 Residual hemorrhoidal skin tags; D12.2 Benign neoplasm of ascending colon; D12.0 Benign neoplasm of cecum